=== PATIENT | female | born 1970 | race Hispanic/Latino ===

== ENCOUNTER → 2022-12-10 | Outpatient (CLI) | payer BC | LOC: MAMMO 13:54 | PROVIDERS: ATTEND Obstetrics & Gynecology | DX: Z12.31 Encounter for screening mammogram for malignant neoplasm of breast (principal) | CPT/HCPCS: 77067 ==

== ENCOUNTER → 2024-02-23 | Outpatient (REF) | payer BC | LOC: MAMMO 09:42 | PROVIDERS: ATTEND Obstetrics & Gynecology | DX: Z12.31 Encounter for screening mammogram for malignant neoplasm of breast (principal) | CPT/HCPCS: 77067 ==

== ENCOUNTER → 2024-02-27 | Day surgery (SDC) | payer BC ==
[~2024-02-27] MED LIST: LIDOCAINE HCL 2% LOCAL INJ 5 ML SDV VIAL INJ ONE; MIDAZOLAM HCL 2 MG/2 ML VIAL ONE; PROPOFOL IV EMULSION 10 MG/ML 20 ML VIAL ONE
[2024-02-27] MEDS: LACTATED RINGER'S 1,000 ML ONE (13:07)
[2024-02-27 14:06] VITALS: TEMP 97.1
[2024-02-27 14:30] VITALS: BP 111/63; PULSE 65; RESP 18; O2SAT 99
== END | disposition home or self-care (01) ==
LOC: OR 12:45
PROVIDERS: ATTEND Internal Medicine Gastroenterology
DX: Z12.11 Encounter for screening for malignant neoplasm of colon (principal); K57.30 Diverticulosis of large intestine without perforation or abscess without bleeding; K64.0 First degree hemorrhoids; R12 Heartburn; Z01.810 Encounter for preprocedural cardiovascular examination; Z87.01 Personal history of pneumonia (recurrent)
CPT/HCPCS: 45378; 93005; J2001; J2250; J2704; J7121